=== PATIENT | male | born 1960 | race Caucasian/White ===

== ENCOUNTER 2017-07-18 16:49 | Emergency (ER) ==
[2017-07-18 16:56] VITALS: BP 129/79; TEMP 98.5; BMI 37.6
[2017-07-18] MEDS ORDERED: TETANUS DIPHTHERIA TOXOIDS IM ONE (17:01)
[2017-07-18] MEDS ORDERED: LIDOCAINE HCL 1% SDV SUBCUT STA (17:15)
--- NOTE | 2017-07-18 17:18 | ED.PDOC ---
General ED Provider: Dr. OBINNA CERDA Chief Complaint: Hand Laceration Stated Complaint: left index laceration Time Seen by Physician: 17:00 (tetnus is out of date ) Mode of Arrival: Walk-In Information Source: Patient Exam Limitations: No limitations Primary Care Provider: CATA KESSLER Nursing and Triage Documentation Reviewed and Agree: Yes (see photos occured at [facility] sharp metal trauma) Skin Complaint Exam - Laceration/Head/Facial Complaint/Exam Location of Injury: Other (left hand index finger ) Mechanism of Injury: Laceration, Sharp trauma Onset/Duration: today 1 hr ago Symptoms Are: Still present Initial Severity: Mild Current Severity: Mild Aggravating: None Alleviating: Compression Associated Signs and Symptoms: Denies: Fever, Chills, Erythema, Numbness, Tingling Related History: Denies: Anticoagulant use Differential Diagnoses: Closed Fracture, Laceration Review of Systems - Review Of Systems Constitutional: Reports: No symptoms Eyes: Reports: No symptoms Ears, Nose, Mouth, Throat: Reports: No symptoms Respiratory: Reports: No symptoms Cardiac: Reports: No symptoms GI: Reports: No symptoms : Reports: No symptoms Musculoskeletal: Reports: No symptoms Skin: Reports: Other (laceration left index) Neurological: Reports: No symptoms Endocrine: Reports: No symptoms Hematologic/Lymphatic: Reports: No symptoms All Other Systems: Reviewed and Negative Past Medical History - Past Medical History Previously Healthy: Yes Endocrine: Reports: None Cardiovascular: Reports: None Respiratory: Reports: None Hematological: Reports: None Gastrointestinal: Reports: None Genitourinary: Reports: None Neuro/Psych: Reports: None Musculoskeletal: Reports: None Cancer: Reports: None - Surgical History General Surgical History: Reports: None - Family History Family History: Reports: None - Social History Smoking Status: Current every day smoker, Light tobacco smoker Hx Substance Use: No Alcohol Screening: None - Immunizations Tetanus Shot up to Date: No Physical Exam - Physical Exam Appearance: Well-appearing, No pain distress, Well-nourished Eyes: YEHUDA, EOMI, Conjunctiva clear ENT: Ears normal, Nose normal, Oropharynx normal Respiratory: Airway patent, Breath sounds clear, Breath sounds equal, Respirations nonlabored Cardiovascular: RRR, Pulses normal, No rub, No murmur GI/: Soft, Nontender, No masses, Bowel sounds normal, No Organomegaly Musculoskeletal: Normal strength, ROM intact, No edema, No calf tenderness Skin: Warm, Dry, Normal color Neurological: Sensation intact, Motor intact, Reflexes intact, Cranial nerves intact, Alert, Oriented Psychiatric: Affect appropriate, Mood appropriate Procedures - Laceration/Wound Repair No standard instances Wound Description: Flap Wound Length (cm): 3cm Wound Width: 2mm Wound Depth: 2mm Wound Explored: Clean Wound Irrigated: No Wound Prep: Saline, Hibiclens Anesthesia: Lidocaine (plain 5ml) Wound Debrided: Minimal Undermining: Minimal Wound Margins: Vermilion border aligned Wound Repaired With: Sutures Suture Size and Type: 3 prolene Number of Sutures: 17 Number of Alexi: 0 Layer Closure?: No Sterile Dressing Applied?: No Splint Applied?: No Sling Applied?: No Critical Care Note - Critical Care Note Total Time (mins): 0 Course - Course Orders, Labs, Meds: Orders Category Date Time Status Lidocaine HCl/Pf [Lidocaine HCl 1% Sdv] MEDS 07/18/17 17:15 Stat 5 ml SUBCUT ONCE STA Tetanus, Diphtheria Tox,Adult [Tetanus Diphtheria MEDS 07/18/17 17:01 Discontinued Toxoids] 0.5 ml IM .ONCE ONE FINGER(S), LEFT MIN 2V Stat RADS 07/18/17 17:00 Ordered Medications Discontinued Medications Generic Name Dose Route Start Last Admin Trade Name Luisq PRN Reason Stop Dose Admin Lidocaine HCl 5 ml 07/18/17 17:15 Lidocaine Hcl 1% Sdv SUBCUT 07/18/17 17:16 ONCE STA Tetanus/Diphtheria Toxoids 0.5 ml 07/18/17 17:01 Tetanus Diphtheria Toxoids IM 07/18/17 17:02 .ONCE ONE Vital Signs: Temp Pulse Resp BP Pulse Ox 07/18/17 16:50 98.5 F 73 16 129/79 95 Departure - Departure Time of Disposition: 18:00 Disposition: HOME SELF-CARE Discharge Problem: Laceration of hand Instructions: Care For Your Stitches (ED), Laceration (ED), Acute Wounds (ED) Condition: Good Pt referred to PMD for follow-up: Yes Additional Instructions: Please call your Family Physician as soon as possible to schedule a follow-up appointment. Allergies/Adverse Reactions: Allergies Penicillins Adverse Reaction (Verified 07/18/17 16:55) Home Medications: Ambulatory Orders Atorvastatin Calcium [Lipitor] 20 mg PO DAILY 12/21/14 Hydrocodone/Acetaminophen [Lortab 5-325 Mg Tablet] 1 each PO BID 12/21/14 Tizanidine HCl [Zanaflex] 4 mg PO DAILY 12/21/14
--- NOTE | 2017-07-18 17:32 | DI ---
EXAM: Four views of the left second digit. HISTORY: Laceration Trauma. FINDINGS: The bones are intact with no evidence of fracture. The joint spaces are maintained. No ev idence of a radiopaque foreign body. There is overlying bandage artifact which obscures detail. Impression: No evidence of fracture. No evidence of a radiopaque foreign body.
== END 2017-07-18 18:26 | disposition home or self-care (01) ==
LOC: ED 16:49
DX: S61.211A Laceration without foreign body of left index finger without damage to nail, initial encounter (principal); W45.8XXA Other foreign body or object entering through skin, initial encounter; F17.210 Nicotine dependence, cigarettes, uncomplicated
CPT/HCPCS: 90471; 90714; 99283

== ENCOUNTER 2018-10-14 12:10 | Outpatient (CLI) ==
--- NOTE | 2018-10-14 13:47 | DI ---
EXAM: Two views of the chest. History: Cough. Comparison: Chest radiograph 07/19/2016 Findings: Heart size is within normal limits. Central bronchial wall thickening. No consolidation. No appreciable pleural fluid and no pneumothorax. No acute osseous abnormalities. Calcified granu alea again seen within the left lung. Impression: Central bronchial wall thickening but no consolidated pneumonia. Old granulomatous dise ase.
== END 2018-10-14 12:11 | disposition home or self-care (01) ==
LOC: RAD 12:10
PROVIDERS: ATTEND Internal Medicine
DX: R05 Cough (principal); R09.89 Other specified symptoms and signs involving the circulatory and respiratory systems; R68.89 Other general symptoms and signs